=== PATIENT | male | born 1970 | race Caucasian/White ===

== ENCOUNTER 2021-02-06 01:00 | Emergency (ER) | payer SELFPAY ==
[~2021-02-06] VITALS: Ht 157.5 cm; Wt 61.2 kg
[2021-02-06 01:10] VITALS: Ht 157.5 cm; Wt 61.2 kg
[2021-02-06 01:30] LABS: BASOPHILS 0.2 % (0-2); EOSINOPHILS 0.5 % (0-7); HEMATOCRIT 41.6 % (42.0-54.0); HEMOGLOBIN 14.5 g/dL (13.5-17.5); LYMPHOCYTE ABS# 1.46 10x3/uL (1.32-3.57); LYMPHOCYTES 33.6 % (15-50); MCH 31.5 pg (26.0-34.0); MCHC 34.9 g/dL (31.0-37.0); MCV 90.2 fL (80.0-100.0); MEAN PLATELET VOLUME 8.7 fL (7.4-10.4); MONOCYTES 9.2 % (2-11); NEUTROPHIL ABS# 2.46 10x3/uL (1.78-5.38); NEUTROPHILS 56.5 % (40-80); PLATELET COUNT 262 10x3/uL (130-400); RBC 4.61 10x6/uL (4.20-6.10); RDW 12.4 % (11.5-14.5); WBC 4.4 10x3/uL (4.8-10.8)
[2021-02-06 01:41] LABS: CALC OSMOLALITY 250 mosm/kg (275-300); CALCIUM 8.4 mg/dL (8.5-10.1); CARBON DIOXIDE 27.4 mmol/L (21.0-32.0); CHLORIDE - SERUM 92 mmol/L (98-107); CREATININE - SERUM 0.8 mg/dL (0.6-1.3); GLUCOSE 93 mg/dL (74-106); POTASSIUM - SERUM 4.2 mmol/L (3.5-5.1); SODIUM 126 mmol/L (136-145); UREA NITROGEN 6 mg/dL (7-18); eGFR NON AFRICAN AMERICAN > 90 mL/min (90-120)
[2021-02-06 01:44] LABS: APTT 26.2 SECONDS (22.8-39.4); INR 1.08 (0.85-1.17)
[2021-02-06 01:57] LABS: ALBUMIN 3.9 g/dL (3.4-5.0); ALKALINE PHOSPHATASE 80 U/L (30-120); ALT (SGPT) 39 U/L (10-68); BILIRUBIN - TOTAL 0.27 mg/dL (0.2-1.3); CKMB 1.8 U/L (0.0-3.6); CREATINE KINASE 195 UL (21-232); MAGNESIUM - SERUM 1.8 mg/dL (1.8-2.4); PROTEIN - SERUM 8.1 g/dL (6.4-8.2); TROPONIN-I < 0.017 ng/mL (0.000-0.060)
[2021-02-06 05:10] VITALS: BP 122/75
== END 2021-02-06 05:11 | disposition home or self-care (01) ==
LOC: D.ER 01:00
PROVIDERS: Family Medicine
DX: R55 Syncope and collapse (principal)